=== PATIENT | female | born 1950 ===

== ENCOUNTER 2018-09-29 06:38 | Inpatient (IN) | payer OTHER ==
[~2018-09-29] VITALS: Ht 147.3 cm; Wt 68.0 kg
[2018-10-07] MEDS ORDERED: LOPERAMIDE2 MG PO (12:11)
[2018-10-07] MEDS ORDERED: ULTRACET PO (12:11)
== END 2018-10-07 15:54 | disposition home or self-care (01) | DRG 330 ==
LOC: ER 06:38 → SEC-K 09:19 → MEDJ 09:19
PROVIDERS: Surgery
PROC: 30233N1 Transfusion of Nonautologous Red Blood Cells into Peripheral Vein, Percutaneous Approach (ICD-10-PCS; 2018-09-29)
PROC: BB24Y0Z Computerized Tomography (CT Scan) of Bilateral Lungs using Other Contrast, Unenhanced and Enhanced (ICD-10-PCS; 2018-09-30)
PROC: BW21Y0Z Computerized Tomography (CT Scan) of Abdomen and Pelvis using Other Contrast, Unenhanced and Enhanced (ICD-10-PCS; 2018-09-30)
PROC: B246ZZZ Ultrasonography of Right and Left Heart (ICD-10-PCS; 2018-10-03)
PROC: 05H633Z Insertion of Infusion Device into Left Subclavian Vein, Percutaneous Approach (ICD-10-PCS; 2018-10-04)
PROC: 0DJD8ZZ Inspection of Lower Intestinal Tract, Via Natural or Artificial Opening Endoscopic (ICD-10-PCS; 2018-10-04)
PROC: 0DJD7ZZ Inspection of Lower Intestinal Tract, Via Natural or Artificial Opening (ICD-10-PCS; 2018-10-04)
PROC: 0DBP7ZX Excision of Rectum, Via Natural or Artificial Opening, Diagnostic (ICD-10-PCS; 2018-10-04)
PROC: 0UJH7ZZ Inspection of Vagina and Cul-de-sac, Via Natural or Artificial Opening (ICD-10-PCS; 2018-10-04)
PROC: 0D1B4Z4 Bypass Ileum to Cutaneous, Percutaneous Endoscopic Approach (ICD-10-PCS; principal; 2018-10-04 12:00)
DX: C20 Malignant neoplasm of rectum (principal); K92.2 Gastrointestinal hemorrhage, unspecified; D62 Acute posthemorrhagic anemia; I34.0 Nonrheumatic mitral (valve) insufficiency; K56.41 Fecal impaction; I10 Essential (primary) hypertension; R63.4 Abnormal weight loss

== ENCOUNTER 2018-10-21 16:50 | Inpatient (IN) | payer OTHER ==
[~2018-10-21] VITALS: Ht 147.3 cm; Wt 65.3 kg
[~2018-10-21 16:50] MED LIST: LOPERAMIDE2 MG PO; ULTRACET PO
[2018-11-03] MEDS ORDERED: LOPERAMIDE2 MG PO (14:59)
[2018-11-03] MEDS ORDERED: INTEGRA F CAPS1 EACH PO (15:00)
== END 2018-11-03 16:31 | disposition home or self-care (01) | DRG 394 ==
LOC: SEC-K 16:50 → SURH 16:50
PROC: 3E0436Z Introduction of Nutritional Substance into Central Vein, Percutaneous Approach (ICD-10-PCS; 2018-10-26)
PROC: 02HV33Z Insertion of Infusion Device into Superior Vena Cava, Percutaneous Approach (ICD-10-PCS; principal; 2018-10-27)
DX: K94.13 Enterostomy malfunction (principal); D62 Acute posthemorrhagic anemia; C21.1 Malignant neoplasm of anal canal; K62.5 Hemorrhage of anus and rectum; C44.520 Squamous cell carcinoma of anal skin; L30.8 Other specified dermatitis; I10 Essential (primary) hypertension; R63.4 Abnormal weight loss
CPT/HCPCS: 240